=== PATIENT | male | born 1990 | race Caucasian/White ===

== ENCOUNTER 2016-09-01 06:13 | Emergency (ER) | payer OTHER | END 2016-09-01 06:58 | disposition home or self-care (01) | DX: S93.402A Sprain of unspecified ligament of left ankle, initial encounter (principal); X50.0XXA Overexertion from strenuous movement or load, initial encounter; Y92.018 Other place in single-family (private) house as the place of occurrence of the external cause ==

== ENCOUNTER 2018-11-24 19:05 | Emergency (ER) | payer OTHER ==
--- NOTE | 2018-11-24 19:35 | ED Physician Documentation ---
History of Present Illness - Stated complaint Stated Complaint: THROAT BLEEDING/POST SURG - Chief complaint Chief Complaint: Heent - History obtained from History obtained from: Patient - History of Present Illness Timing: Today (He had a tonsillectomy yesterday by Kedar Booker in [place]. Today he has had 2 episodes of bleeding, the first 1 was a small amount but the second 1 he describes as 2 cups of blood from the left tonsil. It has abated.) Review of Systems Constitutional: reports: Reviewed and negative Eyes: reports: Reviewed and negative Ears: reports: Reviewed and negative Nose: reports: Reviewed and negative PD PAST MEDICAL HISTORY - Past Surgical History Past Surgical History: No - Present Medications Home Medications: Ambulatory Orders Medication Instructions Recorded Confirmed Acetaminophen 500 mg PO Q6H PRN 11/24/18 11/24/18 Ibuprofen [Motrin] 400 mg PO Q6H PRN 11/24/18 11/24/18 Oxycodone HCl 5 mg PO Q6HR PRN 11/24/18 11/24/18 - Allergies Allergies/Adverse Reactions: Allergies Allergy/AdvReac Type Severity Reaction Status Date / Time No Known Drug Allergies Allergy Verified 11/24/18 19:14 - Social History Does the pt smoke?: No Smoking Status: Former smoker Does the pt drink ETOH?: Yes Does the pt have substance abuse?: No - Immunizations Immunizations are current?: Yes - POLST Patient has POLST: No PD ED PE NORMAL - Vitals Vital signs reviewed: Yes - General General: Alert and oriented X 3, No acute distress - HEENT HEENT: Other (Appropriate cauterized. Appearance of right tonsillar pillar with fresh clot on the left tonsillar pillar. No active bleeding. No trismus.) - Neck Neck: Supple, no meningeal sign, No bony TTP - Cardiac Cardiac: RRR, No murmur - Respiratory Respiratory: No respiratory distress, Clear bilaterally - Abdomen Abdomen: Soft, Non tender - Back Back: No CVA TTP, No spinal TTP - Derm Derm: Normal color, Warm and dry - Extremities Extremities: No edema, No calf tenderness / cord - Neuro Neuro: Alert and oriented X 3, Normal speech - Psych Psych: Normal mood, Normal affect Results - Vitals Vitals: Vital Signs - 24 hr 11/24/18 19:07 Temperature 36.7 C Heart Rate 54 L Respiratory 18 Rate Blood Pressure 120/62 O2 Saturation 100 Oxygen O2 Source Room air - Labs Labs: Laboratory Tests 11/24/18 11/24/18 19:51 19:51 WBC 13.1 H RBC 4.87 Hgb 13.5 L Hct 41.6 L MCV 85.3 MCH 27.8 MCHC 32.5 RDW 14.1 Plt Count 228 MPV 9.0 Neut # (Auto) 10.6 H Lymph # (Auto) 1.[address] [place] # (Auto) 1.0 Eos # (Auto) 0.0 Baso # (Auto) 0.0 Absolute Nucleated RBC 0.00 Nucleated RBC % 0.0 Sodium 140 Potassium 3.8 Chloride 103 Carbon Dioxide 30 Anion Gap 7.0 BUN 19 Creatinine 1.0 Estimated GFR (MDRD) 89 Glucose 96 Calcium 9.5 PD MEDICAL DECISION MAKING - ED course ED course: I spoke with Dr. Mckinney shortly after arrival, he is hemodynamically stable. He recommended observing him for a couple of hours and if he does not bleed in that timeframe he can follow-up with them tomorrow. I went to update the patient at 7:55 PM about the plan of care and he was blee diann again. There is probably about 100 mL of fresh blood in a vomit bag at the bedside. Dr. Mckinney was re-paged. Dr. Mckinney agreed with transfer to [facility]' ER for evaluation and he was accepted there by Dr. Fulton at 8:20 PM and cobras were completed. Departure - Departure Disposition: 02 Transfer Acute Care Hosp Clinical Impression: Post-tonsillectomy hemorrhage Condition: Serious Comments: Follow-up with the surgeon tomorrow, call his office first thing in the morning, they would like to see you tomorrow for recheck. Return immediately for further bleeding.
[2018-11-24] MEDS ORDERED: IBUPROFEN 600 MG TABLET PO STA (19:52)
[2018-11-24] MEDS ORDERED: WATER FOR INJECTION STERILE NAS STA (19:55)
[2018-11-24] MEDS ORDERED: TRANEXAMIC ACID NAS STA (19:55)
[2018-11-24 19:59] LABS: BASOPHILS % (AUTO) 0.1 %; EOSINOPHILS % (AUTO) 0.2 %; HGB - HEMOGLOBIN 13.5 g/dL (14.0-18.0); LYMPHOCYTES # (AUTO) 1.4 10^3/uL (1.5-3.5); MEAN CORPUSCULAR HEMOGLOBIN 27.8 pg (27.0-31.0); MEAN CORPUSCULAR HGB CONC 32.5 g/dL (32.0-36.0); MEAN CORPUSCULAR VOLUME 85.3 fL (80.0-94.0); MONOCYTES % (AUTO) 7.8 %; NEUTROPHILS # (AUTO) 10.6 10^3/uL (1.5-6.6); NEUTROPHILS % (AUTO) 80.9 %; PLT - PLATELET COUNT 228 10^3/uL (130-450); RED BLOOD COUNT 4.87 10^6/uL (4.70-6.10); RED CELL DISTRIBUTION WIDTH 14.1 % (12.0-15.0); WHITE BLOOD COUNT 13.1 x10^3/uL (4.8-10.8)
[2018-11-24 20:12] LABS: CALCIUM 9.5 mg/dL (8.5-10.3)
[2018-11-24] MEDS ORDERED: TRANEXAMIC ACID 1,000 MG/10 ML VIAL ONE (20:19)
[2018-11-24 20:39] VITALS: BP 122/74
== END 2018-11-24 21:10 | disposition short-term general hospital (02) ==
LOC: ED 19:05
DX: J95.830 Postprocedural hemorrhage of a respiratory system organ or structure following a respiratory system procedure (principal); Z87.891 Personal history of nicotine dependence
CPT/HCPCS: 36415; 80048; 85025; 99283; A9270; 99284

== ENCOUNTER 2018-11-24 21:13 | Outpatient (CLI) | payer OTHER | END 2018-11-24 21:14 | disposition short-term general hospital (02) | LOC: EMS 21:13 | PROVIDERS: ATTEND Surgery | DX: J95.830 Postprocedural hemorrhage of a respiratory system organ or structure following a respiratory system procedure (principal) | CPT/HCPCS: A0425; A0429 ==